=== PATIENT | male | born 1980 | race Caucasian/White ===

== ENCOUNTER 2017-09-15 19:03 | Emergency (ER) | payer OTHER ==
[2017-09-15 20:59] LABS: ADD MAN DIFF? NO
[2017-09-15 21:00] LABS: BASOPHILS % 0.4 % (0.0-2.0); EOSINOPHILS # 0.2 10^3/ul (0.0-0.5); HEMATOCRIT 44.1 % (42.0-52.0); HEMOGLOBIN 15.3 g/dl (14.0-18.0); LYMPHOCYTES % 36.9 % (15.0-51.0); MEAN CORPUSCULAR HEMOGLOBIN 31.9 pg (29.0-33.0); MEAN CORPUSCULAR HGB CONC 34.7 g/dl (32.0-37.0); MEAN CORPUSCULAR VOLUME 91.9 fl (82.0-101.0); MEAN PLATELET VOLUME 10.6 fl (7.4-10.4); MONOCYTE # 0.7 10^3/ul (0.3-0.9); MONOCYTES % 8.7 % (0.0-11.0); NEUTROPHIL # 4.1 10^3/ul (1.6-7.5); NEUTROPHILS % 50.8 % (39.0-77.0); PLATELET COUNT 258 10^3/UL (140-415); RED CELL DISTRIBUTION WIDTH 12.7 % (11.5-14.5)
[2017-09-15 21:09] LABS: ACETAMINOPHEN < 10.0 ug/ml (10.0-30.0); ALANINE AMINOTRANSFERASE 121 IU/L (13-69); ALBUMIN 4.4 g/dl (3.3-4.9); ALBUMIN/GLOBULIN RATIO 1.29; ALKALINE PHOSPHATASE 83 IU/L (42-121); ANION GAP 17 (8-16); ASPARTATE AMINO TRANSFERASE 60 IU/L (15-46); BILIRUBIN,INDIRECT 0.2 mg/dl (0-1.1); BILIRUBIN,TOTAL 0.2 mg/dl (0.2-1.3); BLOOD UREA NITROGEN 17 mg/dl (7-20); CARBON DIOXIDE 25 mmol/L (21-31); CHLORIDE 104 mmol/L (97-110); CREATININE 0.78 mg/dl (0.61-1.24); ETHANOL < 10.0 mg/dl; GLUCOSE 119 mg/dl (70-220); SALICYLATE < 1.0 mg/dl (5.0-30.0); SODIUM 142 mmol/L (135-144); TOTAL PROTEIN 7.8 g/dl (6.1-8.1)
[2017-09-15] MEDS: HALOPERIDOL 5 MG INJ IM (23:00)
[2017-09-16] MEDS ORDERED: RISPERIDONE 0.25 MG TAB PO (05:00)
[2017-09-16] MEDS: RISPERIDONE 0.25 MG TAB PO (05:12)
== END 2017-09-16 05:22 | disposition home or self-care (01) ==
LOC: E/R 09-16 05:22
DX: F15.10 Other stimulant abuse, uncomplicated (principal); F17.210 Nicotine dependence, cigarettes, uncomplicated
CPT/HCPCS: 36415; 80053; 80306; 85025; 99283-25

== ENCOUNTER 2018-01-16 18:58 | Emergency (ER) | payer SELFPAY, OTHER | END 2018-01-16 22:14 | disposition left against medical advice (07) | LOC: E/R 18:58 | DX: Z53.21 Procedure and treatment not carried out due to patient leaving prior to being seen by health care provider (principal) ==

== ENCOUNTER 2018-06-19 07:07 | Emergency (ER) | payer OTHER | END 2018-06-19 08:25 | disposition home or self-care (01) | LOC: FTE 07:07 | DX: J01.10 Acute frontal sinusitis, unspecified (principal); J30.9 Allergic rhinitis, unspecified | CPT/HCPCS: 99282; Z7502 ==

== ENCOUNTER 2018-11-17 16:13 | Emergency (ER) | payer OTHER | END 2018-11-17 18:46 | disposition home or self-care (01) | LOC: FTE 16:13 | DX: S90.821A Blister (nonthermal), right foot, initial encounter (principal); B35.3 Tinea pedis; F17.210 Nicotine dependence, cigarettes, uncomplicated; L08.9 Local infection of the skin and subcutaneous tissue, unspecified; X58.XXXA Exposure to other specified factors, initial encounter; Y92.9 Unspecified place or not applicable | CPT/HCPCS: 99283; Z7502 ==